=== PATIENT | male | born 1970 | race Caucasian/White ===

== ENCOUNTER 2020-03-26 06:38 | Emergency (ER) | payer OTHER ==
--- NOTE | 2020-03-26 07:15 | EDPHYS ---
Physician Documentation [facility] Name: Santos Polanco Age: 49 yrs Sex: Male : 1970 Arrival Date: 03/26/2020 Time: 06:43 Bed 17 Private MD: ED Physician Agusto Pelaez HPI: 03/26 07:14 This 49 yrs old Male presents to ER via Ambulatory with complaints of Ear kb Pain. 07:14 The patient presents with a fullness, pain, swelling, tenderness. The complaints affect kb the left ear. Onset: The symptoms/episode began/occurred 3 day(s) ago, and became worse last night. Modifying factors: The symptoms are alleviated by nothing, the symptoms are aggravated by touching. Associated signs and symptoms: The patient has no apparent associated signs or symptoms. Severity of symptoms: At their worst the symptoms were moderate in the emergency department the symptoms are unchanged. The patient has experienced similar episodes in the past, a few times. The patient has not recently seen a physician. Pt reports left ear pain, fullness for 3 days. . Historical: - Allergies: 06:57 No Known Allergies; bb - Home Meds: 06:57 Unable to obtain [Active]; bb - PMHx: 06:57 Hypertension; Hypothyroidism; bb - PSHx: 06:57 Carpal Tunnel Repair; ACL repair; Vasectomy; bb - Immunization history:: Adult Immunizations up to date. - Social history:: Smoking status: unknown Patient uses alcohol, occasionally. Patient/guardian denies using street drugs. ROS: 07:15 Constitutional: Negative for fever, chills, and weight loss, Cardiovascular: Negative kb for chest pain, palpitations, and edema, Respiratory: Negative for shortness of breath, cough, wheezing, and pleuritic chest pain, Abdomen/GI: Negative for abdominal pain, nausea, vomiting, diarrhea, and constipation, Back: Negative for injury and pain, MS/Extremity: Negative for injury and deformity, Skin: Negative for injury, rash, and discoloration, Neuro: Negative for headache, weakness, numbness, tingling, and seizure. 07:15 ENT: Positive for ear pain. Exam: 07:15 Constitutional: This is a well developed, well nourished patient who is awake, alert, kb and in no acute distress. Head/Face: Normocephalic, atraumatic. Chest/axilla: Normal chest wall appearance and motion. Nontender with no deformity. No lesions are appreciated. Cardiovascular: Regular rate and rhythm with a normal S1 and S2. No gallops, murmurs, or rubs. Normal PMI, no JVD. No pulse deficits. Respiratory: Lungs have equal breath sounds bilaterally, clear to auscultation and percussion. No rales, rhonchi or wheezes noted. No increased work of breathing, no retractions or nasal flaring. Abdomen/GI: Soft, non-tender, with normal bowel sounds. No distension or tympany. No guarding or rebound. No evidence of tenderness throughout. Skin: Warm, dry with normal turgor. Normal color with no rashes, no lesions, and no evidence of cellulitis. MS/ Extremity: Pulses equal, no cyanosis. Neurovascular intact. Full, normal range of motion. Neuro: Awake and alert, GCS 15, oriented to person, place, time, and situation. Cranial nerves II-XII grossly intact. Motor strength 5/5 in all extremities. Sensory grossly intact. Cerebellar exam normal. Normal gait. 07:15 ENT: External ear(s): are unremarkable, Ear canal(s): swelling, that is moderate, of the left canal, TM's: are normal. Vital Signs: 06:54 BP 144 / 104; Pulse 90; Resp 16 S; Temp 98.4(O); Pulse Ox 98% on R/A; Weight 117.93 kg bb (R); Height 5 ft. 10 in. (177.80 cm) (R); Pain 10/10; 06:54 Body Mass Index 37.31 (117.93 kg, 177.80 cm) bb MDM: 06:56 Patient medically screened. kb 07:13 Data reviewed: vital signs, nurses notes. Data interpreted: Pulse oximetry: on room air kb is 98 %. Interpretation: normal. Counseling: I had a detailed discussion with the patient and/or guardian regarding: the historical points, exam findings, and any diagnostic results supporting the discharge/admit diagnosis, the need for outpatient follow up, a family practitioner, to return to the emergency department if symptoms worsen or persist or if there are any questions or concerns that arise at home. Administered Medications: No medications were administered Disposition: 08:14 Co-signature as Attending Physician, Agusto Pelaez MD I agree with the assessment and tw4 plan of care. Disposition: 03/26/20 07:14 Discharged to Home. Impression: Other otitis externa, left ear. - Condition is Stable. - Discharge Instructions: Otitis Externa, [id number], Ear Drops, Adult, [id number]. - Prescriptions for Ciprodex 0.3- 0.1 % Otic Drops, Suspension - instill 4 drop by OTIC route every 12 hours for 7 days , for ears ONLY; 1 Container. - Medication Reconciliation Form, Thank You Letter, Antibiotic Education, Prescription Opioid Use form. - Follow up: Emergency Department; When: As needed; Reason: Worsening of condition. Follow up: Private Physician; When: 2 - 3 days; Reason: Recheck today's complaints, Continuance of care, Re-evaluation by your physician. Signatures: Mitra Hernández, HAZEL-C HAZEL-Nicolas Batista RN RN em Ballard, Brenda, RN RN bb Wadley, Terrence, MD MD tw4 Corrections: (The following items were deleted from the chart) 07:30 07:14 03/26/2020 07:14 Discharged to Home. Impression: Other otitis externa, left ear. em Condition is Stable. Forms are Medication Reconciliation Form, Thank You Letter, Antibiotic Education, Prescription Opioid Use. Follow up: Emergency Department; When: As needed; Reason: Worsening of condition. Follow up: Private Physician; When: 2 - 3 days; Reason: Recheck today's complaints, Continuance of care, Re-evaluation by your physician. kb
--- NOTE | 2020-03-26 07:15 | ER ---
Nurse's Notes [facility] Name: Santos Polanco Age: 49 yrs Sex: Male : 1970 Arrival Date: 03/26/2020 Time: 06:43 Bed 17 Private MD: Diagnosis: Other otitis externa, left ear Presentation: 03/26 06:54 Chief complaint: Patient states: he has had a left earache for 3 - 5 days, pain is bb getting worse, radiates into face and jaw, unable to hear and could not sleep last night. Coronavirus screen: At this time, the client does not indicate any symptoms associated with coronavirus-19. Ebola Screen: No symptoms or risks identified at this time. Initial Sepsis Screen: Does the patient meet any 2 criteria? No. Patient's initial sepsis screen is negative. Does the patient have a suspected source of infection? No. Patient's initial sepsis screen is negative. Risk Assessment: Do you want to hurt yourself or someone else? Patient reports no desire to harm self or others. Onset of symptoms was March 22, 2020. 06:54 Method Of Arrival: Ambulatory bb 06:54 Acuity: TAMIKO 4 bb Historical: - Allergies: 06:57 No Known Allergies; bb - Home Meds: 06:57 Unable to obtain [Active]; bb - PMHx: 06:57 Hypertension; Hypothyroidism; bb - PSHx: 06:57 Carpal Tunnel Repair; ACL repair; Vasectomy; bb - Immunization history:: Adult Immunizations up to date. - Social history:: Smoking status: unknown Patient uses alcohol, occasionally. Patient/guardian denies using street drugs. Screenin:20 Abuse screen: Denies threats or abuse. Nutritional screening: No deficits noted. em Tuberculosis screening: No symptoms or risk factors identified. Fall Risk None identified. Assessment: 07:20 General: Appears in no apparent distress. uncomfortable, Behavior is calm, cooperative, em appropriate for age, Denies fever. Pain: Complains of pain in left ear Pain currently is 10 out of 10 on a pain scale. Neuro: Level of Consciousness is awake, alert, obeys commands, Oriented to person, place, time, situation, Appropriate for age. Cardiovascular: Capillary refill < 3 seconds Patient's skin is warm and dry. Respiratory: Airway is patent Respiratory effort is even, unlabored, Respiratory pattern is regular, symmetrical. EENT: Ear canal clear on left ear. Derm: Skin is intact, is healthy with good turgor, Skin is pink, warm \T\ dry. Musculoskeletal: Capillary refill < 3 seconds, Range of motion: intact in all extremities. Vital Signs: 06:54 BP 144 / 104; Pulse 90; Resp 16 S; Temp 98.4(O); Pulse Ox 98% on R/A; Weight 117.93 kg bb (R); Height 5 ft. 10 in. (177.80 cm) (R); Pain 10/10; 06:54 Body Mass Index 37.31 (117.93 kg, 177.80 cm) bb ED Course: 06:43 Patient arrived in ED. cl3 06:56 Triage completed. bb 06:56 Mitra Hernández FNP-C is [facility]. kb 06:56 Agusto Pelaez MD is Attending Physician. kb 06:57 Arm band placed on Patient placed in an exam room, on a stretcher, on pulse oximetry. bb 07:20 Patient has correct armband on for positive identification. Bed in low position. Call em light in reach. 07:20 No provider procedures requiring assistance completed. Patient did not have IV access em during this emergency room visit. 07:27 Nicolas Miles, RN is Primary Nurse. em Administered Medications: No medications were administered Outcome: 07:14 Discharge ordered by MD. kb 07:29 Discharged to home ambulatory. em 07:29 Condition: good 07:29 Discharge instructions given to patient, Instructed on discharge instructions, follow up and referral plans. medication usage, Demonstrated understanding of instructions, follow-up care, medications, Prescriptions given X 1. 07:30 Patient left the ED. em Signatures: Mitra Hernández FNP-C FNP-Nicolas Batista, RN RN em Kelsey Kyle RN RN bb Marciano Dennis cl3
[2020-03-26 07:58] VITALS: BP 144/104; TEMP 98.4; O2SAT 98
== END 2020-03-26 07:30 | disposition home or self-care (01) ==
LOC: ER 06:38
DX: H60.8X2 Other otitis externa, left ear (principal); I10 Essential (primary) hypertension
CPT/HCPCS: 99283